=== PATIENT | male | born 2000 | race Two or more races ===

== ENCOUNTER 2021-06-23 08:29 | Observation (INO) ==
[2021-06-23] MEDS ORDERED: SODIUM CHLORIDE 0.9% 1000ML 1,000 ML IV SCH (08:45)
--- NOTE | 2021-06-23 08:49 | Emergency Department Note ---
History of Present Illness General Chief complaint: Sore Throat Stated complaint: BAD SORETHROAT,TOOTH PAIN Time Seen by Provider: 06/23/21 08:37 History of Present Illness Maximum Pain Intensity: 5 This is a 21-year-old otherwise healthy male that presents to the emergency department via private vehicle with complaints of "bad sore throat, tooth pain". The patient states that this past Thursday he began with a low-grade fever, sweats, fatigue, sore throat. Sore throat has progressed. He was started on some sort of flu medication he notes this past but notes persistence of discomfort. He is not sure of the exact medication. Patient now notes a pretty much left-sided predominantly sore throat that he has been managing with ibuprofen. He also notes a tooth ache. He cannot eat secondary to the pain. He denies any trouble breathing. He did take DayQuil and ibuprofen 30 minutes prior to arrival. Current discomfort 10/08. He has a penicillin allergy. No abdominal pain. Allergies Allergy/AdvReac Type Severity Reaction Status Date / Time Penicillins Allergy Verified 06/23/21 08:47 Past Med/Surg History Medical History No pertinent past medical history Surgical History No pertinent past surgical history Social History Smoking Status: Never smoker Preferred Language: Nigerien Feels Safe at Home: Yes Review of Systems A total of 10 systems reviewed and were otherwise negative Physical Exam Vital Signs Vital Signs - 24 hr 06/23/21 08:32 06/23/21 10:24 Temperature 36.8 C Temperature Source Temporal Artery Scan Pulse Rate 90 Pulse Rate [Right Radial] 78 Respiratory Rate 16 18 Blood Pressure 137/85 Blood Pressure [Right Arm] 130/70 Blood Pressure Mean 102 Blood Pressure Mean [Right Arm] 90 Blood Pressure Position [Right Arm] Lying Pulse Oximetry 96 98 Oxygen Delivery Method Room Air Room Air Sepsis Recent Fever Within 48 Hours No Sepsis New/Unexplained Change in Mental Status No Sepsis Action Taken by Nursing No Action Required VITAL SIGNS - Vital signs and nursing notes were reviewed. Stable and afebrile. GENERAL -21-year-old male appearing his stated age who is in no acute distress. Communicates well with provider and answers questions appropriately. SKIN - Without rashes. No meningeal or petechial rash. HEAD - NC/AT. EYES - PERRL with EOMI bilaterally. Sclera anicteric. EARS - No deformities of external structures noted on gross examination bilaterally. No pain elicited with palpation of the tragus bilaterally. External auditory canals without discharge or otorrhea. Tympanic membranes pearly davis without retraction or bulging. No fluid or purulent material visualized behind the TM. Handle of malleus, umbo, cone of light, pars tensa/flaccid all easily visualized. NOSE - Midline and without cyanosis. No epistaxis or purulent drainage noted. Septum midline without deviation or septal hematoma noted. MOUTH/OROPHARYNX - Without perioral cyanosis. Buccal mucosa pink and moist and without leukoplakia. 3+ left-sided tonsillar hypertrophy with soft palate involvement. Mild trismus. No drooling. No stridor. No tripoding. NECK - Neck with FROM. Supple to palpation. Left-sided anterior cervical lymphadenopathy noted. No nuchal rigidity. LUNGS - Chest wall symmetric without accessory muscle use, intercostals retractions, or central cyanosis. Normal vesicular breath sounds CTA B/L. No wheezes, rales, or rhonchi appreciated. CARDIAC - RRR with S1/S2. No murmur, rubs, or gallops appreciated. ABDOMEN - Abdominal contour normal without pulsations or visible masses. BS normoactive all four quadrants. No tenderness, palpable masses, hepatosplenomegaly, or ascites noted. EXTREMITIES - No clubbing or peripheral cyanosis. No pretibial edema present. +5/5 strength noted in UE/LE bilaterally. NEUROLOGIC - Cranial nerves II through XII grossly intact. PSYCH - A&Ox3 and cooperates fully with examiner. Pt is very pleasant and interacts well with examiner. Course Administered Medications Discontinued Medications Dexamethasone Sodium Phosphate (DexamethasonePf 10 Mg/Ml Vial) 10 mg IV NOW ONE Stop: 06/23/21 10:17 Last Admin: 06/23/21 10:22 Dose: 10 mg Documented by: [id number] Sodium Chloride (Nss 1000ml) 1,000 mls @ 999 mls/hr IV .Q1H1M NIKI Stop: 06/23/21 09:45 Last Infusion: 06/23/21 09:55 Dose: 0 mls/hr Documented by: [id number] Admin: 06/23/21 08:52 Dose: 999 mls/hr Documented by: [id number] Clindamycin Phosphate 600 mg/ (Dextrose) 54 mls @ 100 mls/hr IV ONE ONE Stop: 06/23/21 10:48 Last Infusion: 06/23/21 11:23 Dose: 0 mls/hr Documented by: [id number] Admin: 06/23/21 10:48 Dose: 100 mls/hr Documented by: [id number] Ioversol (Optiray 320 100ml) 95 ml IV ONCE ONE Stop: 06/23/21 09:49 Last Admin: 06/23/21 09:49 Dose: 95 ml Documented by: [id number] Medical Decision Making Laboratory Data Result diagrams: 06/23/21 08:30 06/23/21 08:30 Lab Results 06/23/21 06/23/21 06/23/21 Range/Units 08:30 08:30 08:30 WBC 11.00 H (4.8-10.8) K/uL RBC 5.30 (4.7-6.1) M/uL Hgb 15.8 (14.0-18.0) g/dL Hct 44.5 (42-52) % MCV 84.0 (80-100) fL MCH 29.8 (25-34) pg MCHC 35.5 (32-36) g/dL RDW Std Deviation 37.7 (36.4-46.3) fL RDW Coeff of Wilian 12.4 (11.5-14.5) % Plt Count 277 (130-400) K/uL MPV 11.0 H (7.4-10.4) fL Immature Gran % (Auto) 0.1 % Neut % (Auto) 69.6 % Lymph % (Auto) 14.5 % [place] % (Auto) 13.5 % Eos % (Auto) 1.9 % Baso % (Auto) 0.4 % Neut # (Auto) 7.66 H (1.4-6.5) K/uL Lymph # (Auto) 1.59 (1.2-3.4) K/uL [place] # (Auto) 1.49 H (0.11-0.59) K/uL Eos # (Auto) 0.21 (0-0.5) K/uL Baso # (Auto) 0.04 (0-0.2) K/uL Immature Gran # (Auto) 0.01 (0.00-0.02) K/uL Sodium 135 L (136-145) mmol/L Potassium 3.8 (3.5-5.1) mmol/L Chloride 102 (98-107) mmol/L Carbon Dioxide 26 (21-32) mmol/L Anion Gap 7 (3-11) BUN 9 (6-23) mg/dl Creatinine 0.70 (0.6-1.4) mg/dl Est Cr Clr Drug Dosing 163.8 ml/min Est GFR ( Amer) > 150.0 ml/min Est GFR (Non-Af Amer) 135.9 ml/min BUN/Creatinine Ratio 12.9 (10-20) Glucose 102 H (70-99(Fasting)) mg/dl Calcium 10.5 H (8.5-10.1) mg/dl Total Bilirubin 1.9 H (0.2-1.0) mg/dl AST 29 (13-39) U/L ALT 22 (7-52) U/L Alkaline Phosphatase 72 (34-104) U/L Total Protein 8.5 H (6.0-8.3) gm/dl Albumin 4.7 (3.4-5.0) gm/dl Globulin 3.8 (2.5-4.0) gm/dl Albumin/Globulin Ratio 1.2 (0.9-2) Monoscreen Cancelled SARS-CoV-2, RNA, NAAT (NEGATIVE) Group A Strep (PCR) (NotDetected) 06/23/21 06/23/21 06/23/21 Range/Units 08:54 09:53 Unknown WBC (4.8-10.8) K/uL RBC (4.7-6.1) M/uL Hgb (14.0-18.0) g/dL Hct (42-52) % MCV (80-100) fL MCH (25-34) pg MCHC (32-36) g/dL RDW Std Deviation (36.4-46.3) fL RDW Coeff of Wilian (11.5-14.5) % Plt Count (130-400) K/uL MPV (7.4-10.4) fL Immature Gran % (Auto) % Neut % (Auto) % Lymph % (Auto) % [place] % (Auto) % Eos % (Auto) % Baso % (Auto) % Neut # (Auto) (1.4-6.5) K/uL Lymph # (Auto) (1.2-3.4) K/uL [place] # (Auto) (0.11-0.59) K/uL Eos # (Auto) (0-0.5) K/uL Baso # (Auto) (0-0.2) K/uL Immature Gran # (Auto) (0.00-0.02) K/uL Sodium (136-145) mmol/L Potassium (3.5-5.1) mmol/L Chloride (98-107) mmol/L Carbon Dioxide (21-32) mmol/L Anion Gap (3-11) BUN (6-23) mg/dl Creatinine (0.6-1.4) mg/dl Est Cr Clr Drug Dosing ml/min Est GFR ( Amer) ml/min Est GFR (Non-Af Amer) ml/min BUN/Creatinine Ratio (10-20) Glucose (70-99(Fasting)) mg/dl Calcium (8.5-10.1) mg/dl Total Bilirubin (0.2-1.0) mg/dl AST (13-39) U/L ALT (7-52) U/L Alkaline Phosphatase (34-104) U/L Total Protein (6.0-8.3) gm/dl Albumin (3.4-5.0) gm/dl Globulin (2.5-4.0) gm/dl Albumin/Globulin Ratio (0.9-2) Monoscreen Negative SARS-CoV-2, RNA, NAAT NEGATIVE (NEGATIVE) Group A Strep (PCR) NOT DETECTED (NotDetected) Imaging Data Radiologist's Impression: Soft Tissue Neck CT 06/23/21 08:44 CT soft tissue neck w con CLINICAL HISTORY: L sided tonsillar edema, sore throat. Technique: Axial CT images of the soft tissues of the neck were obtained following intravenous administration of 100 cc of Omnipaque 300. Automated dose lowering techniques and/or adjustment according to patient size were utilized for this exam. Comparison: None available at the time of this dictation. Findings: There is a hypodense mass in the left palatine tonsil measuring approximately 12 mm in diameter. There is prominence of the tonsils bilaterally. There is bilateral cervical node enlargement, the largest on the right measures 12 mm in short axis and the largest on the right measures 19 mm. Prominent subcentimeter nodes are also seen in the submandibular stations. The parotid glands, submandibular glands, and thyroid gland are unremarkable. There is narrowing of the oropharynx due to tonsillar swelling but the remainder of the trachea is p atent. Imaged portions of the brain parenchyma are unremarkable. The paranasal sinuses and mastoid air cells are normal in appearance. Impression: Developing abscess on the left measuring approximately 12 mm. Associated lymphadenopathy is seen in the bilateral cervical chains. ACT 112: Negative or not required by law. Electronically signed by: Nick Castillo M.D. 06/23/2021 10:00 AM MDM Narrative Patient was seen and evaluated as above in room C07. Review was performed of triage nursing notes and vital signs. After obtaining a thorough history and physical examination the above work up was performed. Patient presents to us today with predominantly a sore throat. Vital signs stable. He is nontoxic on examination. He did have ibuprofen and DayQuil prior to arrival. Clinically the patient does have concern for left-sided peritonsillar abscess. He cli nically appears well. Options of care were discussed with the patient. IV access was established. Labs were drawn. Strep, mono and COVID testing were obtained. Patient does note that he was COVID-positive 1 month ago. Laboratory studies were also obtained. CT soft tissue neck with contrast was ordered to further evaluate the patient's predominantly left-sided soft palate involvement and tonsillar hypertrophy over concern for possible abscess. Patient was given IV fluids. He respectfully declined pain medication. There is a developing abscess on the left measuring approximately 12 mm. Associated lymphadenopathy is seen which I would agree with clinically. Patient's airway is patent. The patient is spitting into a container as he notes it is quite painful to swallow. Patient has a penicillin allergy but is unsure of the reaction. In an attempt to avoid any allergic reaction here we will avoid penicillins at the present time. Benefits and risks of IV clindamycin discussed. This was ordered. I also ordered IV Decadron. I do recommend inpatient management as I do believe he would benefit from IV antibiotics and IV steroids/fluids throughout the day. I believe it is a bit too soon to discharge him on oral therapy at the present time given presentation. At this present time there is no ENT on-call however I do not believe that transfer at the present time is needed. I do believe that medical management is reasonable for the present time but this may change depe nding on clinical trend. Case was discussed with the attending physician. Case also discussed with the hospitalist. Please refer to further documentation regarding his stay. Labs reveal mild leukocytosis 11.0. No anemia. Mild hyponatremia 135. No evidence of kidney or liver failure. T bili 1.9 without previous for comparison. [place], COVID and strep test negative. GCS: 15 In the evaluation and treatment of this patient the following differential diagnoses were entertained: Strep pharyngitis, viral pharyngitis, allergic rhinitis with post nasal drip, airway obstruction, head/neck neoplasias, GERD, peritonisllar abscess, epiglottitis, omou-fkpb-cqp-mouth disease, herpes simplex, mononucleosis, pneumonia, retropharyngeal abscess, scarlet fever, among others. Impression & Plan Peritonsillar abscess, Sore throat Discharge Plan Visit Data Chief Complaint: Sore Throat Stated Complaint: BAD SORETHROAT,TOOTH PAIN ED Provider: Michael Fink ED Midlevel Provider: John Gordillo Discharge Problem: Peritonsillar abscess, Sore throat Patient Disposition: Admitted As Inpatient Condition: Good Forms Stand Alone Forms: My [facility] Referrals Referrals: NO PCP [Other]
[2021-06-23 09:03] LABS: Basophils # (auto) 0.04 K/uL (0-0.2); Basophils % (auto) 0.4 %; Eosinophils # (auto) 0.21 K/uL (0-0.5); Eosinophils % (auto) 1.9 %; Hematocrit (blood only) 44.5 % (42-52); Hemoglobin 15.8 g/dL (14.0-18.0); Immature Granulocytes # (auto) 0.01 K/uL (0.00-0.02); Immature Granulocytes % (auto) 0.1 %; Lymphocytes # (auto) 1.59 K/uL (1.2-3.4); Lymphocytes % (auto) 14.5 %; Mean Corpuscular Hemoglobin 29.8 pg (25-34); Mean Corpuscular Hgb Conc 35.5 g/dL (32-36); Monocytes # (auto) 1.49 K/uL (0.11-0.59); Monocytes % (auto) 13.5 %; Neutrophils # (auto) 7.66 K/uL (1.4-6.5); Neutrophils % (auto) 69.6 %; Platelet Count 277 K/uL (130-400); RDW Coefficient of Variation 12.4 % (11.5-14.5); RDW Standard Deviation 37.7 fL (36.4-46.3)
[2021-06-23 09:27] LABS: Alanine Aminotransferase 22 U/L (7-52); Albumin Globulin Ratio 1.2 (0.9-2); Albumin Level 4.7 gm/dl (3.4-5.0); Alkaline Phosphatase 72 U/L (34-104); Anion Gap 7 (3-11); Aspartate Aminotransferase 29 U/L (13-39); BUN Creatinine Ratio 12.9 (10-20); Bilirubin,Total 1.9 mg/dl (0.2-1.0); Blood Urea Nitrogen 9 mg/dl (6-23); Calcium 10.5 mg/dl (8.5-10.1); Carbon Dioxide 26 mmol/L (21-32); Chloride 102 mmol/L (98-107); Creatinine Clr Calc Pharmacy 163.8 ml/min; Est GFR (African American) > 150.0 ml/min; Est GFR (Non-African American) 135.9 ml/min; Globulin 3.8 gm/dl (2.5-4.0); Glucose 102 mg/dl (70-99(Fasting)); Potassium 3.8 mmol/L (3.5-5.1); Sodium 135 mmol/L (136-145); Total Protein 8.5 gm/dl (6.0-8.3)
[2021-06-23] MEDS ORDERED: OPTIRAY 320 100ml IV ONE (09:48)
--- NOTE | 2021-06-23 10:01 | CT Scan Report ---
CT soft tissue neck w con CLINICAL HISTORY: L sided tonsillar edema, sore throat. Technique: Axial CT images of the soft tissues of the neck were obtained following intravenous admini stration of 100 cc of Omnipaque 300. Automated dose lowering techniques and/or adjustment according t o patient size were utilized for this exam. Comparison: None available at the time of this dictation. Findings: There is a hypodense mass in the left palatine tonsil measuring approximately 12 mm in diameter. Ther e is prominence of the tonsils bilaterally. There is bilateral cervical node enlargement, the larges t on the right measures 12 mm in short axis and the largest on the right measures 19 mm. Prominent coppola bcentimeter nodes are also seen in the submandibular stations. The parotid glands, submandibular gla nds, and thyroid gland are unremarkable. There is narrowing of the oropharynx due to tonsillar swell ing but the remainder of the trachea is patent. Imaged portions of the brain parenchyma are unremarkable. The paranasal sinuses and mastoid air cell s are normal in appearance. Impression: Developing abscess on the left measuring approximately 12 mm. Associated lymphadenopathy is seen in t he bilateral cervical chains. ACT 112: Negative or not required by law. Electronically signed by: Nick Castillo M.D. 06/23/2021 10:00 AM
[2021-06-23] MEDS ORDERED: CLINDAMYCIN 600 MG in DEXTROSE 5% 50 ML IV ONE (10:16)
[2021-06-23] MEDS ORDERED: dexAMETHasone**PF** 10 MG/ML VIAL IV ONE (10:16)
--- NOTE | 2021-06-23 10:55 | History & Physical Report ---
Date of Service June 23, 2021 Assessment & Plan (1) Peritonsillar abscess: Plan: admit under obs for above diagnosis received corticosteroid and clindamycin (due to penicillin allergy) wll continue clindamycin. will monitor clinically. may consider consult Dr. Mary placed on liquid diet. imagining shows: developing abscess on the left measuring approximately 12 mm. (2) Sore throat: History of Present Illness Chief Complaint: sore throat Primary Care Provider: NO PCP 21 yo male with no significant PMH presents to the ER with difficulty swallowing solid foods, pain on his left side of his throat, since thursday. Patient has been drooling. Patient prefers to have liquid diet. Patient reports never having any cases like this in the past. Patient reports that he has developed a tooth ache which is moderate to severe in intensity over past 2 days. Allergies Allergy/AdvReac Type Severity Reaction Status Date / Time Penicillins Allergy Verified 06/23/21 08:47 Past Med/Surg History Medical History No pertinent past medical history Surgical History No pertinent past surgical history Social History Smoking Status: Never smoker Hx Alcohol Use: Yes Hx Substance Use: No Preferred Language: Filipino Communication Ability: Effective E/M Engineer Required: No Beliefs That Will Affect Care: None Current Living Situation: Other Current Living Situation Comment: Dorm Feels Safe at Home: Yes Assistive Devices: Glasses Review of Systems Constitutional: + malaise; no fever and no body aches Eyes: no blind spots Ear, Nose, Mouth, Throat: + dental pain, + sore throat and + change in voice; no ear pain Respiratory: no cough Cardiovascular: no chest pain Gastrointestinal: no abdominal pain Genitourinary: no dysuria Musculoskeletal: no back pain Integumentary: no acne Neurologic: no gait abnormality Psychiatric: no behavioral changes Endocrine: no fatigue Hematologic / Lymphatic: no easy bleeding Allergy / Immunological: no seasonal rhinorrhea Physical Exam Constitutional: WD/WN, vitals as above Eyes: PERRL, conjunctivae normal, anicteric sclerae ENMT: external ear and nose normal, oropharynx normal (except for: enlargement of left tonsil) Neck: trachea midline, no thyromegaly Respiratory: normal respiratory effort, lungs clear to auscultation Cardiovascular: RRR, no murmur, no edema Gastrointestinal (Abdomen): normal bowel sounds, soft, nontender, no hepatosplenomegaly Musculoskeletal: no cyanosis or clubbing, extremities motor strength 5/5 Neurologic: PERRL, EOMI, accommodation nl, no face palsy, no dysarthria Psychiatric: A+Ox3, euthymic affect Lymphatic: + lymphadenopathy Results & Data Results & Data ([facility]) Vital Signs (Past 12 Hours) Vital Signs Temp Pulse Pulse Resp BP BP Pulse Ox 06/23/21 10:24 78 18 130/70 98 06/23/21 08:32 36.8 C 90 16 137/85 96 PG Care Time/CCT Total # of Minutes Spent Total Time Spent with Patient: Total time spent is greater than 50% in coordination of care (as documented) at patient's floor/unit and/or counseling patient: Coding Level of Care Code 80897 Initial Inpt Care Lvl 3 Diagnoses Peritonsillar abscess J36 Sore throat J02.9
[2021-06-23] MEDS: ACETAMINOPHEN 325 MG TAB PO PRN ×2 (12:49→22:51)
[2021-06-23] MEDS: CLINDAMYCIN 600 MG in DEXTROSE 5% 50 ML IV SCH ×2 (15:55→22:51)
[2021-06-24] MEDS: CLINDAMYCIN 600 MG in DEXTROSE 5% 50 ML IV SCH (08:16)
--- NOTE | 2021-06-24 09:20 | Hospitalist Progress Note ---
Date of Service June 24, 2021 Assessment & Plan Admission and Anticipated Discharge Date Admission Date: June 23, 2021 Results & Data Results & Data ([facility]) Vital Signs (Past 12 Hours) Vital Signs Temp Pulse Resp BP BP Pulse Ox 06/24/21 07:58 36.6 C 74 16 102/57 L 97 06/23/21 22:42 36.6 C 85 14 116/69 98 Laboratory Results Soft Tissue Neck CT 06/23/21 08:44 CT soft tissue neck w con CLINICAL HISTORY: L sided tonsillar edema, sore throat. Technique: Axial CT images of the soft tissues of the neck were obtained following intravenous administration of 100 cc of Omnipaque 300. Automated dose lowering techniques and/or adjustment according to patient size were utilized for this exam. Comparison: None available at the time of this dictation. Findings: There is a hypodense mass in the left palatine tonsil measuring approximately 12 mm in diameter. There is prominence of the tonsils bilaterally. There is bilateral cervical node enlargement, the largest on the right measures 12 mm in short axis and the largest on the right measures 19 mm. Prominent subcentimeter nodes are also seen in the submandibular stations. The parotid glands, submandibular glands, and thyroid gland are unremarkable. There is narrowing of the oropharynx due to tonsillar swelling but the remainder of the trachea is patent. Imaged portions of the brain parenchyma are unremarkable. The paranasal sinuses and mastoid air cells are normal in appearance. Impression: Developing abscess on the left measuring approximately 12 mm. Associated lymphadenopathy is seen in the bilateral cervical chains. ACT 112: Negative or not required by law. Electronically signed by: Nick Castillo M.D. 06/23/2021 10:00 AM PG Care Time/CCT Total # of Minutes Spent Total Time Spent with Patient: Total time spent is greater than 50% in coordination of care (as documented) at patient's floor/unit and/or counseling patient: Coding
[2021-06-24] MEDS: ACETAMINOPHEN 325 MG TAB PO PRN (09:26)
[2021-06-24 09:36] LABS: Basophils # (auto) 0.02 K/uL (0-0.2); Basophils % (auto) 0.2 %; Eosinophils # (auto) 0.06 K/uL (0-0.5); Eosinophils % (auto) 0.7 %; Hematocrit (blood only) 41.8 % (42-52); Immature Granulocytes # (auto) 0.02 K/uL (0.00-0.02); Immature Granulocytes % (auto) 0.2 %; Lymphocytes # (auto) 1.88 K/uL (1.2-3.4); Lymphocytes % (auto) 23.2 %; Mean Corpuscular Hemoglobin 29.8 pg (25-34); Mean Corpuscular Hgb Conc 35.9 g/dL (32-36); Mean Corpuscular Volume 82.9 fL (80-100); Mean Platelet Volume 10.6 fL (7.4-10.4); Monocytes # (auto) 0.76 K/uL (0.11-0.59); Monocytes % (auto) 9.4 %; Neutrophils # (auto) 5.38 K/uL (1.4-6.5); Neutrophils % (auto) 66.3 %; Platelet Count 299 K/uL (130-400); RDW Coefficient of Variation 12.3 % (11.5-14.5); RDW Standard Deviation 37.2 fL (36.4-46.3); Red Blood Count 5.04 M/uL (4.7-6.1); White Blood Count 8.12 K/uL (4.8-10.8)
[2021-06-24 10:02] LABS: Alanine Aminotransferase 20 U/L (7-52); Albumin Level 4.1 gm/dl (3.4-5.0); Alkaline Phosphatase 64 U/L (34-104); Anion Gap 13 (3-11); Aspartate Aminotransferase 21 U/L (13-39); BUN Creatinine Ratio 14.5 (10-20); Bilirubin Direct 0.2 mg/dl (0-0.2); Bilirubin,Total 1.3 mg/dl (0.2-1.0); Blood Urea Nitrogen 9 mg/dl (6-23); Calcium 9.9 mg/dl (8.5-10.1); Carbon Dioxide 23 mmol/L (21-32); Chloride 102 mmol/L (98-107); Creatinine Clr Calc Pharmacy 185.2 ml/min; Est GFR (African American) > 150.0 ml/min; Est GFR (Non-African American) 142.8 ml/min; Glucose 105 mg/dl (70-99(Fasting)); Potassium 3.6 mmol/L (3.5-5.1); Sodium 138 mmol/L (136-145); Total Protein 7.5 gm/dl (6.0-8.3)
--- NOTE | 2021-06-24 11:48 | Discharge Summary ---
Date of Service June 24, 2021 Admission HPI Per Admitting Provider Chief Complaint: sore throat Primary Care Provider: LIBAN PCP 21 yo male with no significant PMH presents to the ER with difficulty swallowing solid foods, pain on his left side of his throat, since thursday. Patient has been drooling. Patient prefers to have liquid diet. Patient reports never having any cases like this in the past. Patient reports that he has developed a tooth ache which is moderate to severe in intensity over past 2 days. Admission Exam Per Admitting Provider Constitutional: WD/WN, vitals as above Eyes: PERRL, conjunctivae normal, anicteric sclerae ENMT: external ear and nose normal, oropharynx normal (except for: enlargement of left tonsil) Neck: trachea midline, no thyromegaly Respiratory: normal respiratory effort, lungs clear to auscultation Cardiovascular: RRR, no murmur, no edema Gastrointestinal (Abdomen): normal bowel sounds, soft, nontender, no hepatosplenomegaly Musculoskeletal: no cyanosis or clubbing, extremities motor strength 5/5 Neurologic: PERRL, EOMI, accommodation nl, no face palsy, no dysarthria Psychiatric: A+Ox3, euthymic affect Lymphatic: + lymphadenopathy Principal Diagnosis Peritonsillar Abscess Discharge Exam general: WD, WN male laying in bed, no acute distress eyes anicteric, PERLLA, EOMI trachea midline b/l cervical adenopathy, +enlarged tonsil LEFT, speaking in complete sentences and handle secretions no obvious dental caries/abscess or drainage, palpation without tenderness CV: RRR, no m/r/g, no edema Resp: CTAB, no w/c/r, on room air 97% GI: +BS, soft, non-tender : no calderón MSK: moves all extremities Psych: alert, oriented x 3, pleasant and cooperative. anxious for discharge Discharge Data Allergies Allergy/AdvReac Type Severity Reaction Status Date / Time Penicillins Allergy Verified 06/23/21 08:47 Consultations 06/23/21 10:17 ED Decision to Admit Stat 06/24/21 09:17 Consult Oromaxillofacial Surgery Routine Ordered Studies Soft Tissue Neck CT 06/23/21 08:44 CT soft tissue neck w con CLINICAL HISTORY: L sided tonsillar edema, sore throat. Technique: Axial CT images of the soft tissues of the neck were obtained following intravenous administration of 100 cc of Omnipaque 300. Automated dose lowering techniques and/or adjustment according to patient size were utilized for this exam. Comparison: None available at the time of this dictation. Findings: There is a hypodense mass in the left palatine tonsil measuring approximately 12 mm in diameter. There is prominence of the tonsils bilaterally. There is bilateral cervical node enlargement, the largest on the right measures 12 mm in short axis and the largest on the right measures 19 mm. Prominent subcentimeter nodes are also seen in the submandibular stations. The parotid glands, submandibular glands, and thyroid gland are unremarkable. There is narrowing of the oropharynx due to tonsillar swelling but the remainder of the trachea is patent. Imaged portions of the brain parenchyma are unremarkable. The paranasal sinuses and mastoid air cells are normal in appearance. Impression: Developing abscess on the left measuring approximately 12 mm. Associated lymphadenopathy is seen in the bilateral cervical chains. ACT 112: Negative or not required by law. Electronically signed by: Nick Castillo M.D. 06/23/2021 10:00 AM Hospital Course (1) Peritonsillar abscess: Symptoms started last Thursday and did not seek treatment CT on admission with developing abscess on the left measuring approximately 12 mm. Associated lymphadenopathy is seen in the bilateral cervical chains. Started on CLindamycin d/t PCN allergy, got dose of corticosteroid Consulted Dr Mary -- felt safe for d/c on oral abx at this time Advanced diet as tolerated without difficulty, less swelling Supportive care, pain control with tylenol prn Strep negative on admission, [place] negative Obtained throat culture for completeness prior to discharge Discharged on clindamycin 450mg TID for total 10 days, medrol dose rossana, and will dex mouth wash. Encouraged to PUSH FLUIDS TO ENSURE HYDRATION. Patient very anxious and wanting to d/c today. Already missed several days of school last week for same. School note provided To follow up with Dr Mary after discharge (2) Sore throat: Total Time Total Time Spent Total Time Spent (In Minutes): 45 Discharge Plan Discharge Items Patient Disposition: Home - Self-Care Reason For Visit: SORE THROAT Discharge Diagnosis: Peritonsillar Abscess Condition on Discharge: Good Goals: You have been hospitalized for an acute medical problem. During your stay at [facility], we have made an effort to correct the problem that brought you to the hospital while keeping you as comfortable as possible. Medications were used to bring your condition under control and your discharge instructions will include directions for any medications you should take after leaving the hospital. Please make sure you see your Primary Care Provider as part of your follow up plan. Activity: As commented below Lifting: Gradually increase as tolerated Bathing: No limitations Exercise/Sports: Rest today and Wait until after follow-up appointment Driving/Machine Use: Resume 1 day after discharge Weightbearing: Full weightbearing Non-emergency contact: Primary Care Provider and Surgeon Call non-emergency contact if: you have any medication questions, your symptoms worsen, your pain is not controlled, your temperature is above 101.5, your wound has increased redness, your wound has increased drainage and your wound pain has increased Follow-up/Referrals: Wagner Mary, SRUTHI [Physician] - 06/28/21 10:15 am PCP,NO [Primary Care Provider] - Diet: Regular Diet Texture: Easy to Chew Addtl Attending Provider Instructions: You have been hospitalized for a peritonsillar abscess. You were placed on clindamycin due to penicillin allergy and seen by Dr Mary from maxillofacial surgery. It was felt that you have made improvements on antibiotics and it is STRONGLY ENCOURAGED TO CONTINUE TO PUSH ORAL FLUIDS TO MAINTAIN HYDRATION. You have been given clindamycin 3 doses (24 hours worth of treatment), and per Dr Mary you should continue another 9 days to complete a course of 10 days. This will be 450mg by mouth (3 of the 150mg tablets) THREE TIMES A DAY. You have also been given a Medrol dose pack as well as Peridex mouth wash to wash VIGOROUSLY to help keep clean. You may use Tylenol/ibuprofen as needed for pain control but please do not exceed 3,000mg of Tylenol or 2400mg of ibuprofen in a 24 hour period of time. You will need to have follow up with [facility] and Dr Mary at discharge. Please return to the emergency department with any difficulty/worsening swallowing/fever, chills, chest pain, shortness of breath, or for any other symptoms concerning for you. ADDITIONAL ACTIVITY RECOMMENDATIONS: * [place] teeth after every meal. It is very important to keep your mouth clean to prevent infection. * Starting tonight gargle with the Peridex as directed then 2 x a day after breakfast and before bed * it is very important to keep well hydrated, this prevents fever * Tomorrow start gargle with 1/2 teaspoon salt in 8 ounces warm water. Repeat every 4-6 hours. * You may experience slight nausea. To prevent this, never take your medication on an empty stomach. If nauseated, take small sips of victorina marivel until you feel better; then you may start on applesauce and toast. * Some swelling is common. It should gradually decrease within 4-5 days. If you or your parents have any questions please call Dr Mary at [phone] * You may experience some discomfort for a few days. If pain or throat swelling increases, Call Dr Mary *Return to the office for a follow up check up on: *office address--[address] phone # [phone] Pending Studies at Discharge: Yes Studies:: Throat Culture Stand-Alone Forms: [facility], Work/School Release, Smoking Cessation Medications and DC Order Prescriptions: New clindamycin HCl 150 mg capsule 450 mg PO Q8H 9 Days Qty: 81 RF: 0 methylprednisolone [Methylpred DP] 4 mg tablets,dose pack 4 mg PO DAILY Qty: 21 RF: 0 chlorhexidine gluconate [Paroex Oral Rinse] 0.12 % mouthwash 15 ml buccal BID Qty: 150 RF: 0 Discharge Orders: Discharge Order (Routine); Ordered 06/24/21 Ordered By: Linda iKnney Admission Data Admit Date/Time: 06/23/21 11:15 Attending Provider: Kali Elizondo Admit Provider: Frantz Petersen Primary Care Provider: PCP,NO Other Providers: Frantz Petersen ; Wagner Mary Other Interventions: Discharge Summary Assessment (RN) Last Done: 06/24/21 11:13 Supervising Physician Co-Signing Physician Notes Attending Attestation & Discharge Note: Pt seen/examined, chart reviewed, care plan d/w CYDNEY Kinney. I agree w/ the johnson components of her discharge documentation. 21yo male who presented with acute pharyngitis and evidence of a mild peritonsillar abscess on the left. Rapid mono & strep testing both negative; throat culture dispatched. Seen by Dr Wagner Mary, oral surgery, and abx (clindamycin) with steroids (medrol dose pack) were advised rather than surgical intervention. Pt was able to eat & drink prior to discharge. He will f/u with Dr Mary in his office shortly after discharge. I counseled the patient that if he continues to have fatigue, sore throat, fevers, etc over the next 1-2 weeks despite antibiotics that he should have mono titers to more definitively r/o acute mono. Discharge exam - gen - thin, NAD, nontoxic neck - multiple tender cervical lymph nodes b/l throat - tonsils 3-4+, exudates present, scant asymmetry of position of tonsils (left tonsil slightly pushed anteriorly), erythema of uvula/tonsils/pharyngeal wall heart - RRR, s1 s2, no murmur lungs - CTA b/l abd - soft, NT, ND, BS+, no HSM ext - warm, pulses 2+ b/l Kali Elizondo MD
--- NOTE | 2021-06-29 13:34 | Oral/Maxillofacial Consult ---
Date of Consultation June 24, 2021 Assessment & Plan (1) Peritonsillar abscess: (2) Sore throat: History of Present Illness Reason for Consultation: Possible will tonsillar abscess Attending Physician: Kali Elizondo History of Present Illness 21 yo male with no significant PMH presents to the ER on ThursdayJun 23 with difficulty swallowing solid foods, pain on his left side of his throat, since Thursday. Patient has been drooling. Patient prefers to have liquid diet. Patient reports never having any cases like this in the past. Patient reports that he has developed a tooth ache which is moderate to severe in intensity over past 2 days. Admitted for HOUSEHOLD APPLIANCES SALESPERSON. CT Scan Report Patient:ISMAEL ORANTES Admit Date:06/23/21 MR#:[id number] Address1:[address] [place] [address] Acct ID:[id number] Address2: Date:[address] [facility] Zip:[place] [address] Age:21 Location:ED Sex:M Room/Bed: Att Phy: Diagnosis:BAD SORETHROAT,TOOTH PAIN Neeru Phy:NO PCP Service Date:06/23/21 CLINICAL HISTORY: L sided tonsillar edema, sore throat. Findings: There is a hypodense mass in the left palatine tonsil measuring approximately 12 mm in diameter. There is prominence of the tonsils bilaterally. There is bilateral cervical node enlargement, the largest on the right measures 12 mm in short axis and the largest on the right measures 19 mm. Prominent subcentimeter nodes are also seen in the submandibular stations. The parotid glands, submandibular glands, and thyroid gland are unremarkable. There is narrowing of the oropharynx due to tonsillar swelling but the remainder of the trachea is patent. Imaged portions of the brain parenchyma are unremarkable. The paranasal sinuses and mastoid air cells are normal in appearance. Impression: Developing abscess on the left measuring approximately 12 mm. Associated lymphadenopathy is seen in the bilateral cervical chains. Consult report: On ThursdayJun 24 after IV antibiotics and hydration Ismael is feeling much better. He is talking better and has less pain. The tonsils are enlarged but no abscess formation is present. Teeth are all WNL and dental pain was most likely referred. Still cervical node enlargement Less symptoms present-able to swallow, talk,less pain I discussed treatment plans with his parents over the phone--OK for discharge, oral antibiotics, Medrol dose pac and Peridex rinse. I will see Peter in 5-10 days and follow regarding referral for ENT consult. Discussed with medical and the plan is for D/C today with follow up with Dr Mary. Allergies Allergy/AdvReac Type Severity Reaction Status Date / Time Penicillins Allergy Verified 06/23/21 08:47 Home Medications Medication Instructions Recorded Confirmed Type chlorhexidine gluconate 0.12 % 15 ml BUCCAL BID #150 ml 06/24/21 Rx mouthwash (Paroex Oral Rinse) clindamycin HCl 150 mg capsule 450 mg PO Q8H 9 Days #81 cap 06/24/21 Rx methylprednisolone 4 mg tablets in 4 mg PO DAILY #21 ea 06/24/21 Rx a dose pack (Methylpred DP) Patient History Medical History No pertinent past medical history Surgical History No pertinent past surgical history Social History Smoking Status: Never smoker Hx Alcohol Use: Yes Hx Substance Use: No Preferred Language: Maori Communication Ability: Effective Certified [employer] Required: No Beliefs That Will Affect Care: None Current Living Situation: Other Current Living Situation Comment: Dorm Feels Safe at Home: Yes Assistive Devices: None PG Care Time/CCT Total # of Minutes Spent Total Time Spent with Patient: Total time spent is greater than 50% in coordination of care (as documented) at patient's floor/unit and/or counseling patient: Coding Level of Care Code 69585 Inpt Consult Level 2 Diagnoses Peritonsillar abscess J36 Sore throat J02.9
== END 2021-06-24 13:21 | disposition home or self-care (01) ==
LOC: 3N 08:29 → ED 08:29 → SUATTDRO 11:15 → 3N 12:25